=== PATIENT | male | born 1995 | race Two or more races ===

== ENCOUNTER 2016-07-24 12:17 | Outpatient (CLI) | payer MEDICAID | END 2016-07-24 12:18 | disposition critical access hospital (66) | DX: R06.00 Dyspnea, unspecified (principal); R05 Cough | CPT/HCPCS: A0425; A0429 ==

== ENCOUNTER 2016-07-24 12:33 | Emergency (ER) | payer MEDICAID ==
[2016-07-24] MEDS ORDERED: predniSONE 20 MG TABLET PO STA (14:39)
[2016-07-24] MEDS ORDERED: ALBUTEROL NEB 2.5 MG/3 ML INH STA (14:39)
--- NOTE | 2016-07-24 14:42 | ED Physician Documentation ---
PD HPI URI - Stated complaint Stated Complaint: COUGH - Chief complaint Chief Complaint: General - History obtained from History obtained from: Patient, EMS - History of Present Illness Timing - onset: How many weeks ago (2) Timing duration: Weeks (2) Timing details: Gradual onset Pain level max: 0 Pain level now: 0 Associated symptoms: Fever (subjective), Nasal congestion, Rhinorrhea, Sore throat, Dry cough, Dyspnea (wheezing) Contributing factors: Sick contact Improves by: Rest Worsened by: Activity, Breathing Similar symptoms before: Diagnosis (bronchitis) Recently seen: Emergency Dept (yesterday at [facility] and started on azithromycin and tessalon) Review of Systems Constitutional: reports: Fever (subjective) Nose: reports: Rhinorrhea / runny nose, Congestion Skin: denies: Rash Musculoskeletal: denies: Neck pain, Back pain Neurologic: denies: Headache PD PAST MEDICAL HISTORY - Past Medical History Past Medical History: Yes Cardiovascular: None Respiratory: Asthma Neuro: Headache/migraine Endocrine/Autoimmune: None GI: None : None HEENT: None Psych: Depression Musculoskeletal: Chronic back pain Derm: None Other Past Medical History: sports induced asthma - Past Surgical History Past Surgical History: No - Present Medications Home Medications: Ambulatory Orders Medication Instructions Recorded Confirmed Albuterol Sulf [Ventolin Hfa 2 puffs INH Q4HR PRN #1 inhaler 07/24/16 Inhaler] Azithromycin [Zithromax] 1 tab DAILY 07/24/16 07/24/16 Benzonatate [Tessalon Perle] 100 mg PRN 07/24/16 Prednisone 40 mg PO DAILY #10 tablet 07/24/16 - Allergies Allergies/Adverse Reactions: Allergies Allergy/AdvReac Type Severity Reaction Status Date / Time naproxen Allergy Itching Verified 08/05/15 21:42 - Social History Does the pt smoke?: Yes Smoking Status: Former smoker Does the pt drink ETOH?: Yes Does the pt have substance abuse?: No - Immunizations Immunizations are current?: Yes - POLST Patient has POLST: No PD ED PE NORMAL - Vitals Vital signs reviewed: Yes - General General: Alert and oriented X 3, No acute distress, Well developed/nourished - HEENT HEENT: PERRL, Ears normal, Moist mucous membranes, Pharynx benign - Neck Neck: Supple, no meningeal sign - Cardiac Cardiac: RRR, Strong equal pulses - Respiratory Respiratory: No respiratory distress, Other (Decreased breath sounds bilaterally with mild wheezing.) - Abdomen Abdomen: Soft, Non tender, Non distended - Derm Derm: Warm and dry - Neuro Neuro: Alert and oriented X 3 - Psych Psych: Normal mood, Normal affect Results - Vitals Vitals: Vital Signs - 24 hr 07/24/16 07/24/16 07/24/16 12:39 15:15 15:53 Temperature 37.4 C Heart Rate 74 80 87 Respiratory 18 18 18 Rate Blood Pressure 116/54 L 158/102 H O2 Saturation 97 97 Oxygen O2 Source Room air PD MEDICAL DECISION MAKING - ED course Complexity details: re-evaluated patient, considered differential, d/w patient ED course: Patient is a 21-year-old male who presents to the emergency department what appears to be a viral upper respiratory infection with wheezing. He was given steroids as well as a breathing treatment here with albuterol. Feels much better. He is already on Tessalon and azithromycin for home. We will prescribe him steroids and an inhaler as well. Patient counseled regarding signs and symptoms for which I believe and urgent re-evaluation would be necessary. Patient with good understanding of and agreement to plan and is comfortable going home at this time This document was made in part using voice recognition software. While efforts are made to proofread this document, sound alike and grammatical errors may occur. Patient is very well-appearing, nontoxic. Departure - Departure Disposition: 01 Home, Self Care Clinical Impression: Bronchitis, Wheezing Condition: Good Instructions: ED Bronchitis Asthmatic Follow-Up: Sudheer Boyer MD [Primary Care Provider] - Within 1 week Prescriptions: Albuterol Sulf [Ventolin Hfa Inhaler] 2 puffs INH Q4HR PRN #1 inhaler PRN Reason: Wheezing Prednisone 40 mg PO DAILY #10 tablet Comments: Continue the medications you were given yesterday. Return if you worsen. Your blood pressure was elevated today on check in to the emergency department. This does not mean that you have hypertension, it is a common phenomenon to check into the emergency department and have elevated blood pressure. I recommend that you see your primary care physician within the week to have it rechecked when you're feeling better. Discharge Date/Time: 07/24/16 16:20
[2016-07-24] MEDS ORDERED: predniSONE 20 MG TABLET ONE (15:00)
[2016-07-24] MEDS ORDERED: ALBUTEROL NEB 2.5 MG/3 ML INH ONE (15:03)
[2016-07-24 15:54] VITALS: BP 158/102
[2016-07-24] MEDS ORDERED: ACETAMINOPHEN 325 MG TABLET PO STA (16:08)
[2016-07-24] MEDS ORDERED: ACETAMINOPHEN 325 MG TABLET PO ONE (16:09)
== END 2016-07-24 16:20 | disposition home or self-care (01) ==
LOC: EDUNIT# → ED 12:33
DX: J40 Bronchitis, not specified as acute or chronic (principal); R03.0 Elevated blood-pressure reading, without diagnosis of hypertension; Z87.891 Personal history of nicotine dependence
CPT/HCPCS: 94640; 99283; A9270; J7512; J7613

== ENCOUNTER 2016-09-13 23:10 | Emergency (ER) | payer MEDICAID ==
--- NOTE | 2016-09-13 23:46 | ED Physician Documentation ---
PD HPI LOWER EXT INJURY - Stated complaint Stated Complaint: RT FOOT PAIN - Chief complaint Chief Complaint: Ext Problem - History obtained from History obtained from: Patient - History of Present Illness PD HPI LOW EXT INJURY LOCATION: Right, Foot Type of injury: Twist Where injury occurred: Home Timing - onset: How many days ago (4 days ago the apparent injury but pain just couple of days) Timing - duration: Days (pain just since yesterday) Timing - details: Gradual onset, Still present Improved by: Immobilization Worsened by: Moving, Palpating Associated symptoms: No: Weakness, Numbness, Swelling, Discolored Similar symptoms before: Has not had sx before Recently seen: Not recently seen Review of Systems Constitutional: denies: Fever, Chills Skin: denies: Rash, Lesions Neurologic: denies: Focal weakness, Numbness PD PAST MEDICAL HISTORY - Past Medical History Cardiovascular: None Respiratory: Asthma Neuro: Headache/migraine Endocrine/Autoimmune: None GI: None : None HEENT: None Psych: Depression Musculoskeletal: Chronic back pain, Other (denies history of gout) Derm: None - Past Surgical History Past Surgical History: No - Present Medications Home Medications: Ambulatory Orders Medication Instructions Recorded Confirmed Albuterol Sulf [Ventolin Hfa 2 puffs INH Q4HR PRN #1 inhaler 07/24/16 09/13/16 Inhaler] Ibuprofen 200 - 400 mg PO PRN PRN 09/13/16 09/13/16 Hydrocodone/Acetaminophen [Union 1 each PO Q6H PRN #20 tablet 09/14/16 5-325 Tablet] Ibuprofen [Motrin] 600 mg PO TID #20 tab 09/14/16 - Allergies Allergies/Adverse Reactions: Allergies Allergy/AdvReac Type Severity Reaction Status Date / Time naproxen Allergy Itching Verified 08/05/15 21:42 - Social History Does the pt smoke?: Yes Smoking Status: Former smoker Does the pt drink ETOH?: Yes Does the pt have substance abuse?: Yes Substance Use and Type: Marijuana - Immunizations Immunizations are current?: Yes - POLST Patient has POLST: No PD ED PE NORMAL - Vitals Vital signs reviewed: Yes - General General: Alert and oriented X 3, Well developed/nourished - Derm Derm: Normal color, Warm and dry, No rash - Extremities Extremities: Other (the dorsolateral aspect proximal foot with tenderness, mild swelling, but no redness nor sores. The malleoli are not tender. Toes are not tender. ) - Neuro Neuro: Alert and oriented X 3, No motor deficit, No sensory deficit Results - Vitals Vitals: Vital Signs - 24 hr 09/13/16 09/14/16 23:14 01:33 Temperature 36.1 C L Heart Rate 74 81 Respiratory 16 16 Rate Blood Pressure 158/104 H 149/89 H O2 Saturation 97 100 Oxygen O2 Source Room air - Rads (name of study) right foot Radiology: Prelim report reviewed, EMP read contemporaneously (normal) PD MEDICAL DECISION MAKING - ED course Complexity details: reviewed results, considered differential (sprain with delayed inflammation/tendonitis in lateral muscle. Could also consider gout response to injury but not red/hot and no history of gout. Would be similar treatment to tendonitis anyway. ), d/w patient Departure - Departure Disposition: 01 Home, Self Care Clinical Impression: Right foot sprain Qualifiers: Encounter type: initial encounter Qualified Code(s): S93.601A - Unspecified sprain of right foot, initial encounter Condition: Stable Instructions: ED Sprain Foot Follow-Up: Sudheer Boyer MD [Primary Care Provider] - Prescriptions: Ibuprofen [Motrin] 600 mg PO TID #20 tab Hydrocodone/Acetaminophen [Union 5-325 Tablet] 1 each PO Q6H PRN #20 tablet PRN Reason: Pain Comments: No fractures on the xray. Presume this is a sprain type injury and would improve with the splint and some NSAIDs and time. Sometimes mild injury can trigger some inflammation response, such as tendonitis or gout. These would be treated in the same way at this point. So Ibuprofen three times daily. Add Tylenol 500 mg 4 times daily or hydrocodone every 6 hours as needed for pain. Ankle brace when walking to support ankle/foot. Recheck with PMD if not improved over the next few days. Discharge Date/Time: 09/14/16 01:34
[2016-09-14] MEDS ORDERED: HYDROcod/ACETAM 5/325 MG TABLET PO STA (00:24)
[2016-09-14] MEDS ORDERED: DEXAMETHASONE 10 MG/ML VIAL PO STA (00:25)
[2016-09-14] MEDS ORDERED: DEXAMETHASONE 10 MG/ML VIAL ONE (00:31)
[2016-09-14] MEDS ORDERED: HYDROcod/ACETAM 5/325 MG TABLET ONE (00:31)
--- NOTE | 2016-09-14 01:14 | XRAY Preliminary Report ---
Exam: XR Foot 3 View RT IMPRESSION: 1. Ankle and right foot swelling. 2. No fracture. [facility] SITE ID: [id number]
--- NOTE | 2016-09-14 01:16 | XRAY Report ---
EXAM: RIGHT FOOT RADIOGRAPHY EXAM DATE: 09/14/2016 12:25 AM. CLINICAL HISTORY: Foot injury and pain. COMPARISON: None. TECHNIQUE: 3 views. FINDINGS: Bones: Normal. No fractures or bone lesions. Joints: No dislocation. Mild hallux valgus angulation. Soft Tissues: Right ankle swelling noted. IMPRESSION: 1. Ankle and right foot swelling. 2. No fracture. [facility] Referring Provider Line: [phone] SITE ID: [id number]
[2016-09-14 01:34] VITALS: BP 149/89
== END 2016-09-14 01:34 | disposition home or self-care (01) ==
LOC: ED 23:10
DX: S93.601A Unspecified sprain of right foot, initial encounter (principal); X50.9XXA Other and unspecified overexertion or strenuous movements or postures, initial encounter; Y92.009 Unspecified place in unspecified non-institutional (private) residence as the place of occurrence of the external cause; Z87.891 Personal history of nicotine dependence
CPT/HCPCS: 73630; 99283; A9270

== ENCOUNTER 2017-02-14 02:00 | Emergency (ER) | payer MEDICAID ==
--- NOTE | 2017-02-14 02:08 | ED Physician Documentation ---
PD HPI SKIN - Stated complaint Stated Complaint: RASH - History obtained from History obtained from: Patient - History of Present Illness Timing - onset: Chronic Timing - details: Gradual onset, Still present Location: Abdomen Quality / character: Painful, Burning, Draining Improved by: Antifungal Similar symptoms before: Work up / diagnostics, Treatment Recently seen: Not recently seen - Additional information Additional information: Patient is a 21 year old obese male who is presenting to the emergency department for a rash on his abdomen. patient has had it before in the past and was treated with an antifungal. patient states that he thinks it came back. patient states that he doesn't have a doctor so he came to the emergency department. Review of Systems Constitutional: denies: Fever, Chills Eyes: reports: Reviewed and negative Ears: reports: Reviewed and negative Nose: reports: Reviewed and negative Throat: reports: Reviewed and negative Cardiac: reports: Reviewed and negative Respiratory: reports: Reviewed and negative GI: reports: Abdominal Pain : reports: Reviewed and negative Skin: reports: Rash, Lesions Musculoskeletal: reports: Reviewed and negative Neurologic: reports: Reviewed and negative Immunocompromised: denies: Immunocompromised PD PAST MEDICAL HISTORY - Past Medical History Cardiovascular: None Respiratory: Asthma Neuro: Headache/migraine Endocrine/Autoimmune: None GI: None : None HEENT: None Psych: Depression Musculoskeletal: Chronic back pain, Other Derm: None - Past Surgical History Past Surgical History: No - Present Medications Home Medications: Ambulatory Orders Medication Instructions Recorded Confirmed Nystatin [Nystop] 1 applic TOP TID 14 Days #3 bottle 12/31/16 Nystatin Cream [Mycostatin Cream] 1 applic TOP TID #1 tube 02/14/17 - Allergies Allergies/Adverse Reactions: Allergies Allergy/AdvReac Type Severity Reaction Status Date / Time naproxen Allergy Itching Verified 08/05/15 21:42 - Social History Does the pt smoke?: Yes Smoking Status: Current every day smoker Does the pt drink ETOH?: Yes Does the pt have substance abuse?: Yes - Immunizations Immunizations are current?: Yes - POLST Patient has POLST: No PD ED PE NORMAL - Vitals Vital signs reviewed: Yes - General General: Alert and oriented X 3, No acute distress - HEENT HEENT: Atraumatic, PERRL, Moist mucous membranes - Cardiac Cardiac: RRR, No murmur - Respiratory Respiratory: No respiratory distress - Extremities Extremities: No deformity, Normal ROM s pain - Neuro Neuro: Alert and oriented X 3, No motor deficit, Normal speech Eye Opening: Spontaneous Motor: Obeys Commands Verbal: Oriented GCS Score: 15 - Psych Psych: Normal mood PD ED PE EXPANDED - Abdomen Abdomen: Other (obese abdomen with rash described below) - Derm Derm: Rash (erythematous rash with small white discharge in abdominal fold) Results - Vitals Vitals: Vital Signs - 24 hr 02/14/17 02:08 Temperature 36.4 C L Heart Rate 64 Respiratory 18 Rate Blood Pressure 165/90 H O2 Saturation 100 Oxygen O2 Source Room air PD MEDICAL DECISION MAKING - ED course Complexity details: reviewed old records, reviewed results, re-evaluated patient , considered differential, d/w patient ED course: Patient was seen and examined at bedside. previous notes were reviewed. prescriptions were written. patient was stable for discharge with outpatient follow up. Departure - Departure Disposition: 01 Home, Self Care Clinical Impression: Fungal infection of skin of abdomen Condition: Good Instructions: ED Infec Skin Fungal Tinea Follow-Up: [facility] [Provider Group] [facility] [Provider Group] Prescriptions: Nystatin Cream [Mycostatin Cream] 1 applic TOP TID #1 tube Comments: Your symptoms are being caused by a skin infection. You have to work harder at keeping the area clean and dry or else this is going to keep happening. You should wash and dry the area at least three times a day and apply the medication. You should call the two clinics listed above to find a primary care physician. Discharge Date/Time: 02/14/17 02:15
[2017-02-14 02:09] VITALS: BP 165/90
== END 2017-02-14 02:15 | disposition home or self-care (01) ==
LOC: ED 02:00
DX: B36.9 Superficial mycosis, unspecified (principal); J45.909 Unspecified asthma, uncomplicated; F17.200 Nicotine dependence, unspecified, uncomplicated
CPT/HCPCS: 99283

== ENCOUNTER 2017-03-17 22:45 | Emergency (ER) | payer MEDICAID ==
--- NOTE | 2017-03-18 00:05 | ED Physician Documentation ---
History of Present Illness - Stated complaint Stated Complaint: BILATERAL FEET SWELLING/PX - Chief complaint Chief Complaint: Ext Problem - History obtained from History obtained from: Patient - History of Present Illness Timing: Today Pain level now: 5 Radiates to: no radiation Improved by: no ameliorating factors Worsened by: no exacerbating factors - Additonal information Additional information: since this morning, patient has noticed BLE edema with RLE pain distal to knee ( from upper tibial area to toes). Denies injury, denies h/o similar symptoms. Denies chest pain, denies shortness of breath. Review of Systems Constitutional: denies: Fever Cardiac: denies: Chest pain / pressure Respiratory: denies: Dyspnea Musculoskeletal: reports: Extremity pain, Extremity swelling Neurologic: denies: Generalized weakness, Focal weakness, Numbness PD PAST MEDICAL HISTORY - Past Medical History Past Medical History: Yes Cardiovascular: None Respiratory: Asthma Neuro: Headache/migraine Endocrine/Autoimmune: None GI: None : None HEENT: None Psych: Depression, Anxiety Musculoskeletal: Chronic back pain, Other Derm: None Other Past Medical History: R ankle FX w/ no surgery - Past Surgical History Past Surgical History: No - Present Medications Home Medications: Ambulatory Orders Medication Instructions Recorded Confirmed Alprazolam [Xanax] 1 tab PO Q8HR PRN 03/17/17 03/17/17 Furosemide [Lasix] 40 mg PO DAILY #5 tablet 03/18/17 - Allergies Allergies/Adverse Reactions: Allergies Allergy/AdvReac Type Severity Reaction Status Date / Time naproxen Allergy Itching Verified 03/17/17 22:55 - Social History Does the pt smoke?: Yes Smoking Status: Current every day smoker Does the pt drink ETOH?: Yes Does the pt have substance abuse?: Yes - Immunizations Immunizations are current?: Yes - POLST Patient has POLST: No PD ED PE NORMAL - Vitals Vital signs reviewed: Yes - General General: Alert and oriented X 3, No acute distress, Well developed/nourished - Cardiac Cardiac: RRR, No murmur, No gallop, No rub - Respiratory Respiratory: No respiratory distress, Clear bilaterally - Derm Derm: Normal color, Warm and dry PD ED PE EXPANDED - Extremities Extremities: Pedal edema bilateral, Pedal Pulses Present, Motor intact, Sensory intact, Vascular intact Results - Vitals Vitals: Vital Signs - 24 hr 01/11/2403/18/17 03/18/17 22:50 01:40 03:00 Temperature 37.4 C 36.3 C L Heart Rate 93 80 78 Respiratory 22 15 16 Rate Blood Pressure 161/107 H 123/84 H 146/92 H O2 Saturation 97 97 97 Oxygen O2 Source Room air - Labs Labs: Laboratory Tests 03/18/17 00:28 Sodium 138 Potassium 4.2 Chloride 98 L Carbon Dioxide 23 Anion Gap 17.0 H BUN 13 Creatinine 0.7 Estimated GFR (MDRD) 140 Glucose 110 H Calcium 9.9 - Rads (name of study) RLE US Radiology: Prelim report reviewed, See rad report PD MEDICAL DECISION MAKING - ED course Complexity details: reviewed results, re-evaluated patient, considered differential, d/w patient ED course: BLE pedal edema, 2+ pitting with mild tenderness pre-tibial surfaces R>L. No evidence of infection (such as hot joint, decreased ROM of a joint, red skin to suggest cellulitis). As his c/o of pain was right-sided, ultrasound performed to assess possible DVT, and is found to be negative for this diagnosis. Kidney function tests are reassuring. Cardiac cause is unlikely in this 21 year old patient. Will rx 5 days of lasix and instructed to f/u with PMD Departure - Departure Disposition: Home, Self Care Clinical Impression: Peripheral edema Condition: Good Instructions: ED Edema Legs Bilateral Follow-Up: [facility] [Provider Group] [facility] [Provider Group] Prescriptions: Furosemide [Lasix] 40 mg PO DAILY #5 tablet Discharge Date/Time: 03/18/17 03:03
[2017-03-18 00:47] LABS: CALCIUM 9.9 mg/dL (8.5-10.3); CREATININE 0.7 mg/dL (0.6-1.2)
--- NOTE | 2017-03-18 01:45 | Ultrasound Report ---
EXAM: RIGHT LOWER EXTREMITY VENOUS ULTRASOUND EXAM DATE: 03/18/2017 01:37 AM. CLINICAL HISTORY: Swelling, pain. COMPARISON: None. TECHNIQUE: Real-time sonographic vascular imaging was performed by the [employer] through the lower extremity utilizing both color-flow and Doppler spectral analysis. Multiple pharmacy services representative static fawn ges were saved for review. FINDINGS: Common Femoral Vein (CFV): Normal. CFV-GSV Junction: Normal. Profunda Femoral Vein (PFV): Normal. Femoral Vein (FV) Prox: Normal. Femoral Vein (FV) Mid: Normal. Femoral Vein (FV) Dist: Normal. Popliteal Vein: Normal. Posterior Tibial Veins: Suboptimally seen. No thrombus seen. Peroneal Veins: Not seen. Other: Fluid collection at the lateral aspect of the right knee measuring 3.7 x 0.5 x 2.6 cm. IMPRESSION: 1. No deep venous thrombosis seen. 2. Fluid collection at the lateral right knee measuring 3.7 x 0.5 x 2.6 cm. [facility] Referring Provider Line: [phone] SITE ID: [id number]
[2017-03-18] MEDS ORDERED: traMADol 50 MG TABLET PO STA (02:53)
[2017-03-18 03:03] VITALS: BP 146/92
== END 2017-03-18 03:03 | disposition home or self-care (01) ==
LOC: ED 22:45
DX: R60.0 Localized edema (principal); F17.200 Nicotine dependence, unspecified, uncomplicated
CPT/HCPCS: 80048; 93971; 99283; A9270

== ENCOUNTER 2018-03-24 08:23 | Emergency (ER) | payer MEDICAID ==
[2018-03-24 08:36] VITALS: BP 139/92
[2018-03-24] MEDS ORDERED: BACITRACIN OINT TOP STA (09:44)
--- NOTE | 2018-03-24 09:47 | ED Physician Documentation ---
PD HPI SKIN - Stated complaint Stated Complaint: OPEN WOUND CHECK - Chief complaint Chief Complaint: Wound - History obtained from History obtained from: Patient - Additional information Additional information: 22-year-old male presents the emergency department for evaluation of an abrasion on his right lower extremity. No fevers or chills or redness. Symptoms are described as mild. No active bleeding Review of Systems Constitutional: denies: Fever, Chills GI: denies: Abdominal Pain Skin: reports: Lesions Musculoskeletal: denies: Back pain Immunocompromised: denies: Immunocompromised, Chemotherapy PD PAST MEDICAL HISTORY - Past Medical History Cardiovascular: None Respiratory: Asthma Endocrine/Autoimmune: None GI: None : None HEENT: None Psych: Depression, Anxiety Musculoskeletal: Chronic back pain, Other Derm: None - Past Surgical History Past Surgical History: No - Present Medications Home Medications: Ambulatory Orders Medication Instructions Recorded Confirmed No Known Home Medications 03/24/18 03/24/18 - Allergies Allergies/Adverse Reactions: Allergies Allergy/AdvReac Type Severity Reaction Status Date / Time naproxen Allergy Itching Verified 03/24/18 08:36 - Social History Does the pt smoke?: Yes Smoking Status: Current every day smoker Does the pt drink ETOH?: Yes Does the pt have substance abuse?: Yes Substance Use and Type: Marijuana - Immunizations Immunizations are current?: Yes - POLST Patient has POLST: No PD ED PE NORMAL - General General: Alert and oriented X 3, No acute distress - HEENT HEENT: Atraumatic, PERRL, EOMI, Ears normal - Extremities Extremities: No deformity, Normal ROM s pain - Neuro Neuro: Alert and oriented X 3, Normal speech - Psych Psych: Normal affect PD ED PE EXPANDED - Extremities EARNESTINE LE visual: 1 - abrasion (Very small superficial abrasion, no surrounding cellulitis or underlying abscess on examination) Results - Vitals Vitals: Vital Signs - 24 hr 03/24/18 08:31 Temperature 36.0 C L Heart Rate 81 Respiratory 16 Rate Blood Pressure 139/92 H O2 Saturation 97 Oxygen O2 Source Room air PD MEDICAL DECISION MAKING - ED course ED course: The patient has a simple abrasion, no evidence of abscess or acute cellulitis. I discussed wound management with the patient. I advised returning for any worsening or any concerns. Departure - Departure Disposition: 01 Home, Self Care Clinical Impression: Leg abrasion Qualifiers: Encounter type: initial encounter Laterality: unspecified laterality Qualified Code(s): S80.819A - Abrasion, unspecified lower leg, initial encounter Condition: Good Instructions: Wound Care Comments: Please follow-up with primary care Please return for any worsening or any concerns.
== END 2018-03-24 09:52 | disposition home or self-care (01) ==
LOC: ED 08:23
DX: S80.819A Abrasion, unspecified lower leg, initial encounter (principal); X58.XXXA Exposure to other specified factors, initial encounter; F17.200 Nicotine dependence, unspecified, uncomplicated
CPT/HCPCS: 99282; 99283; A9270

== ENCOUNTER 2018-03-24 20:42 | Emergency (ER) | payer MEDICAID ==
[2018-03-24 20:47] VITALS: BP 138/82
== END 2018-03-24 21:23 | disposition left against medical advice (07) ==
LOC: ED 20:42
DX: Z53.21 Procedure and treatment not carried out due to patient leaving prior to being seen by health care provider (principal)

== ENCOUNTER 2018-03-25 15:12 | Emergency (ER) | payer MEDICAID ==
[2018-03-25 15:43] VITALS: BP 147/89
--- NOTE | 2018-03-25 16:03 | ED Physician Documentation ---
History of Present Illness - Stated complaint Stated Complaint: CAN'T SLEEP - Chief complaint Chief Complaint: General - Additonal information Additional information: 22-year-old male presents the emergency department requesting medications for sleep. The patient used to be on trazodone and Seroquel several years ago for sleep. Presently the patient is Not on any sleep medications. The patient denies suicidal homicidal ideations. The patient has not attempted any [id number]-[id number] medications. No other associated symptoms. Review of Systems Constitutional: denies: Fever, Chills Eyes: denies: Discharge Ears: denies: Ear pain Nose: denies: Congestion Cardiac: denies: Chest pain / pressure Psychiatric: reports: Insomnia. denies: Suicidal, Homicidal, Hallucinations, Delusions, Anxiety PD PAST MEDICAL HISTORY - Past Medical History Past Medical History: Yes Cardiovascular: None Respiratory: Asthma Endocrine/Autoimmune: None GI: None : None HEENT: None Psych: Depression, Anxiety Musculoskeletal: Chronic back pain, Other Derm: None - Past Surgical History Past Surgical History: No - Present Medications Home Medications: Ambulatory Orders Medication Instructions Recorded Confirmed No Known Home Medications 03/24/18 03/24/18 - Allergies Allergies/Adverse Reactions: Allergies Allergy/AdvReac Type Severity Reaction Status Date / Time naproxen Allergy Itching Verified 03/25/18 15:18 - Social History Does the pt smoke?: Yes Smoking Status: Current every day smoker Does the pt drink ETOH?: Yes Does the pt have substance abuse?: Yes - Immunizations Immunizations are current?: Yes - POLST Patient has POLST: No PD ED PE NORMAL - General General: Alert and oriented X 3, No acute distress - HEENT HEENT: Atraumatic, PERRL, EOMI, Ears normal - Derm Derm: Normal color - Neuro Neuro: Alert and oriented X 3, Normal speech - Psych Psych: Normal mood Results - Vitals Vitals: Vital Signs - 24 hr 03/25/18 15:15 Temperature 36 C L Heart Rate 78 Respiratory 20 Rate Blood Pressure 147/89 H O2 Saturation 97 Oxygen O2 Source Room air PD MEDICAL DECISION MAKING - ED course ED course: I explained to the patient that I would not be starting any psychoactive sleep aids at this time. It would be best if the patient attempts [id number] medications first. I gave recommendations for melatonin and Benadryl. I advised follow-up with primary care for ongoing prescriptions of any other sleep aids. The patient understands and agrees. I discussed warning signs and recommended returning for any worsening or any concerns. Departure - Departure Disposition: 01 Home, Self Care Clinical Impression: Sleep trouble Condition: Good Instructions: Insomnia Comments: Please attempt to use yjey-pek-ktwhuyn medications for your sleep troubles. You may want to try melatonin 5-10 mg nightly or Unisom 50 mg nightlyAs needed for sleep Please return to the ER for worsening symptoms or any concerns
== END 2018-03-25 16:11 | disposition home or self-care (01) ==
LOC: ED 15:12
DX: G47.00 Insomnia, unspecified (principal); F17.200 Nicotine dependence, unspecified, uncomplicated
CPT/HCPCS: 99281; 99282

== ENCOUNTER 2018-04-04 23:51 | Emergency (ER) | payer MEDICAID ==
--- NOTE | 2018-04-05 01:28 | XRAY Report ---
Reason: chest pain Procedure Date: 04/05/2018 Accession Number: [id number] / [id number] Procedure: XR - Chest 1 View X-Ray CPT Code: 60356 FULL RESULT: EXAM: CHEST RADIOGRAPHY EXAM DATE: 04/05/2018 01:17 AM. CLINICAL HISTORY: Chest pain. COMPARISON: RIBS W/PA CHEST RT 05/07/2014 9:45 PM. TECHNIQUE: 1 view. FINDINGS: Lungs/Pleura: No dense consolidation. No large effusion or pneumothorax. No pulmonary edema. Mediastinum: Heart and mediastinal contours are unremarkable. Other: None. IMPRESSION: No acute radiographic pulmonary abnormalities. RADIA
--- NOTE | 2018-04-05 01:47 | ED Physician Documentation ---
PD HPI HEENT - Stated complaint Stated Complaint: COUGH,EAR PRESSURE - Chief complaint Chief Complaint: Heent - History obtained from History obtained from: Patient - History of Present Illness Timing - onset: How many days ago (10) Timing - duration: Days (10) Timing - details: Still present Pain level max: 4 Pain level now: 4 Severity Comments: mild Location: Sinuses Improves: Nothing. No: Medication, Heat, Ice Worsens: No: Swalllowing, Noise Associated symptoms: Fever, Congestion, Rhinorrhea Review of Systems Constitutional: reports: Reviewed and negative Eyes: reports: Reviewed and negative Ears: reports: Reviewed and negative Nose: reports: Reviewed and negative Throat: reports: Reviewed and negative Cardiac: reports: Reviewed and negative Respiratory: reports: Reviewed and negative GI: reports: Reviewed and negative : reports: Reviewed and negative Skin: reports: Reviewed and negative Musculoskeletal: reports: Reviewed and negative Neurologic: reports: Reviewed and negative Psychiatric: reports: Reviewed and negative Endocrine: reports: Reviewed and negative Immunocompromised: reports: Reviewed and negative PD PAST MEDICAL HISTORY - Past Medical History Cardiovascular: None Respiratory: Asthma Endocrine/Autoimmune: None GI: None : None HEENT: None Psych: Depression, Anxiety Musculoskeletal: Chronic back pain, Other Derm: None - Past Surgical History Past Surgical History: No Other past surgical history: Reviewed and not pertinent - Present Medications Home Medications: Ambulatory Orders Medication Instructions Recorded Confirmed Amox/Clav 875/125 [Augmentin] 1 each PO Q12H #20 tablet 04/05/18 - Allergies Allergies/Adverse Reactions: Allergies Allergy/AdvReac Type Severity Reaction Status Date / Time No Known Drug Allergies Allergy Verified 04/05/18 00:03 - Living Situation Living Situation: reports: Alone Living Arrangement: reports: At home - Social History Does the pt smoke?: Yes Smoking Status: Current every day smoker Does the pt drink ETOH?: Yes Does the pt have substance abuse?: Yes - Family History Family history: reports: Other (Reviewed and not pertinent) - Immunizations Immunizations are current?: Yes - POLST Patient has POLST: No PD ED PE NORMAL - Vitals Vital signs reviewed: Yes - General General: Alert and oriented X 3, No acute distress - HEENT HEENT: PERRL, Other (Sinus tenderness to percussion) - Neck Neck: Supple, no meningeal sign - Cardiac Cardiac: RRR, No murmur - Respiratory Respiratory: Clear bilaterally - Abdomen Abdomen: Normal bowel sounds, Soft, Non tender, Non distended - Derm Derm: Warm and dry - Extremities Extremities: No deformity - Neuro Neuro: Alert and oriented X 3 - Psych Psych: Normal mood, Normal affect Results - Vitals Vitals: Vital Signs - 24 hr 04/04/18 23:55 Temperature 36.7 C Heart Rate 87 Respiratory 18 Rate Blood Pressure 138/86 H O2 Saturation 97 Oxygen O2 Source Room air - Rads (name of study) Chest x-ray Radiology: Final report received (WNL) PD MEDICAL DECISION MAKING - ED course Complexity details: reviewed results, re-evaluated patient, d/w patient ED course: 22-year-old male with sinus pain greater than 10 days. Consistent with bacterial sinusitis. Discharged on Augmentin. Departure - Departure Disposition: Home, Self Care Clinical Impression: Acute bacterial sinusitis Condition: Good Instructions: ED Sinusitis Abx Tx Ch Follow-Up: Your, pcp [Other] Prescriptions: Amox/Clav 875/125 [Augmentin] 1 each PO Q12H #20 tablet Comments: Take antibiotics as prescribed. You may also take btth-iqy-ygiixen Afrin and Sudafed as needed for congestion. Follow-up with PCP within 24 hours. Return w ith worsening symptoms.
[2018-04-05 01:52] VITALS: BP 132/68
== END 2018-04-05 01:52 | disposition home or self-care (01) ==
LOC: ED 23:51
DX: J01.90 Acute sinusitis, unspecified (principal); B96.89 Other specified bacterial agents as the cause of diseases classified elsewhere; F17.200 Nicotine dependence, unspecified, uncomplicated
CPT/HCPCS: 71045; 99283

== ENCOUNTER 2018-06-17 10:51 | Emergency (ER) | payer MEDICAID ==
[2018-06-17 11:01] VITALS: BP 146/91
--- NOTE | 2018-06-17 11:30 | ED Physician Documentation ---
PD HPI SKIN - Stated complaint Stated Complaint: RASH ON STOMACH - Chief complaint Chief Complaint: Wound - History obtained from History obtained from: Patient - History of Present Illness Timing - onset: How many days ago (several days) Timing - duration: Days (several) Timing - details: Gradual onset Pain level max: 0 Pain level now: 0 Location: Bodywide Quality / character: Itchy, Painful, Discolored (erythematous) Improved by: Other (nothing) Worsened by (comment): COMMENT (nothing) Associated symptoms: No: Fever, Myalgias, Joint pain, Headache, Facial swelling, Dyspnea, Abd pain, N/V/D, Urinary sx Recently seen: Not recently seen - Additional information Additional information: 23-year-old male with a rash under his pannus. Review of Systems Constitutional: denies: Fever Respiratory: denies: Cough GI: denies: Vomiting, Diarrhea PD PAST MEDICAL HISTORY - Past Medical History Past Medical History: Yes Cardiovascular: None Respiratory: Asthma Endocrine/Autoimmune: None GI: None : None HEENT: None Psych: Depression, Anxiety Musculoskeletal: Chronic back pain, Other Derm: None - Past Surgical History Past Surgical History: No - Present Medications Home Medications: Ambulatory Orders Medication Instructions Recorded Confirmed [facility] 1 applic TP BID PRN #1 bottle 06/17/18 - Allergies Allergies/Adverse Reactions: Allergies Allergy/AdvReac Type Severity Reaction Status Date / Time No Known Drug Allergies Allergy Verified 06/17/18 11:01 - Social History Does the pt smoke?: Yes Smoking Status: Current every day smoker Does the pt drink ETOH?: No Does the pt have substance abuse?: Yes Substance Use and Type: Marijuana - Immunizations Immunizations are current?: Yes - POLST Patient has POLST: No PD ED PE NORMAL - Vitals Vital signs reviewed: Yes - General General: Alert and oriented X 3, No acute distress - Derm Derm: Warm and dry, Other (Moist, yeast odor underneath his abdominal pannus. Erythematous with satellite lesions.) - Neuro Neuro: Alert and oriented X 3 Results - Vitals Vitals: Vital Signs - 24 hr 06/17/18 10:59 Temperature 36.0 C L Heart Rate 78 Respiratory 14 Rate Blood Pressure 146/91 H O2 Saturation 95 Oxygen O2 Source Room air PD MEDICAL DECISION MAKING - ED course Complexity details: considered differential, d/w patient ED course: 23-year-old male with what appears to be a candidal skin infection. Will place on nystatin powder and follow-up with his doctor. No evidence of secondary infection. Patient counseled regarding signs and symptoms for which I believe and urgent re-evaluation would be necessary. Patient with good understanding of and agreement to plan and is comfortable going home at this time This document was made in part using voice recognition software. While efforts are made to proofread this document, sound alike and grammatical errors may occur. Departure - Departure Disposition: 01 Home, Self Care Clinical Impression: Candidal skin infection Condition: Good Instructions: ED Candidiasis Cutaneous Follow-Up: Alejandra Alberts MD [Primary Care Provider] - Within 1 week Prescriptions: Nystatin [[facility]] 1 applic TP BID PRN #1 bottle PRN Reason: rash Comments: Return if you worsen. Follow up with your doctor within 1 week for repeat evaluation. Discharge Date/Time: 06/17/18 11:34
== END 2018-06-17 11:34 | disposition home or self-care (01) ==
LOC: ED 10:51
DX: B37.2 Candidiasis of skin and nail (principal); F17.200 Nicotine dependence, unspecified, uncomplicated
CPT/HCPCS: 99283

== ENCOUNTER 2018-10-19 17:43 | Emergency (ER) | payer MEDICAID ==
[2018-10-19 17:50] VITALS: BP 109/88
--- NOTE | 2018-10-19 18:27 | ED Physician Documentation ---
History of Present Illness - Stated complaint Stated Complaint: ARMS/ABD RASH - Chief complaint Chief Complaint: General - History obtained from History obtained from: Patient - History of Present Illness Timing: Other (23-year-old gentleman with morbid obesity has a recurrent issue with candidal skin infection in the intertriginous folds and he has had this issue now for the last week or so. He says that in the past nystatin has been helpful.) Review of Systems Constitutional: denies: Fever, Chills Respiratory: reports: Reviewed and negative GI: denies: Abdominal Pain, Nausea, Vomiting PD PAST MEDICAL HISTORY - Past Medical History Cardiovascular: None Respiratory: Asthma Endocrine/Autoimmune: None GI: None : None HEENT: None Psych: Depression, Anxiety Musculoskeletal: Chronic back pain, Other Derm: None - Past Surgical History Past Surgical History: No - Present Medications Home Medications: Ambulatory Orders Medication Instructions Recorded Confirmed Nystatin [Nyamyc] 1 applic TP BID PRN #1 bottle 06/17/18 Nystatin [Nystop] 1 applic TOP BID #3 bottle 10/19/18 - Allergies Allergies/Adverse Reactions: Allergies Allergy/AdvReac Type Severity Reaction Status Date / Time naproxen Allergy Itching Verified 10/19/18 17:46 - Social History Does the pt smoke?: Yes Smoking Status: Current every day smoker Does the pt drink ETOH?: No Does the pt have substance abuse?: Yes - Immunizations Immunizations are current?: Yes - POLST Patient has POLST: No PD ED PE NORMAL - Vitals Vital signs reviewed: Yes - General General: Alert and oriented X 3, No acute distress - Derm Derm: Other (He has a candidal appearing skin infection under his abdominal pannus and mildly in the axilla.) - Neuro Neuro: Alert and oriented X 3, Normal speech Results - Vitals Vitals: Vital Signs - 24 hr 10/19/18 17:46 Temperature 36.5 C Heart Rate 84 Respiratory 16 Rate Blood Pressure 109/88 H O2 Saturation 97 Oxygen O2 Source Room air Departure - Departure Disposition: 01 Home, Self Care Clinical Impression: Candidal skin infection Condition: Good Record reviewed to determine appropriate education?: Yes Instructions: ED Candidiasis Cutaneous Prescriptions: Nystatin [Nystop] 1 applic TOP BID #3 bottle Comments: Call your doctor to arrange a follow-up appointment, make the next available wilbur ointment. In the interim, return anytime if worse or if new symptoms develop.
== END 2018-10-19 18:30 | disposition home or self-care (01) ==
LOC: ED 17:43
DX: B37.2 Candidiasis of skin and nail (principal); E66.01 Morbid (severe) obesity due to excess calories; Z68.43 Body mass index [BMI] 50.0-59.9, adult; F17.200 Nicotine dependence, unspecified, uncomplicated
CPT/HCPCS: 99282; 99283

== ENCOUNTER 2018-11-09 14:25 | Emergency (ER) | payer MEDICAID ==
[2018-11-09 14:32] VITALS: BP 177/73
--- NOTE | 2018-11-09 14:38 | ED Physician Documentation ---
History of Present Illness - Stated complaint Stated Complaint: LT SIDED NECK PX - Chief complaint Chief Complaint: General - History obtained from History obtained from: Patient - History of Present Illness Timing: Other (He woke up a few days ago with pain in the left side of the neck that is worse with rotation and not so bad with flexion or extension. There is no specific injury. No sore throat or fevers. He is never had this before. He has an appointment to see his doctor next week for same but is having a lot of problems with the pain despite taking Tylenol. He also needs a refill on [place] statin for chronic skin yeast infection under his abdominal pannus.) Review of Systems Constitutional: denies: Fever, Chills GI: denies: Abdominal Pain, Nausea, Vomiting : denies: Dysuria, Frequency PD PAST MEDICAL HISTORY - Past Medical History Cardiovascular: None Respiratory: Asthma Endocrine/Autoimmune: None GI: None : None HEENT: None Psych: Depression, Anxiety Musculoskeletal: Chronic back pain, Other Derm: None - Past Surgical History Past Surgical History: No - Present Medications Home Medications: Ambulatory Orders Medication Instructions Recorded Confirmed Nystatin [Nyamyc] 1 applic TP BID PRN #1 bottle 06/17/18 Nystatin [Nystop] 1 applic TOP BID #3 bottle 10/19/18 Cyclobenzaprine [Flexeril] 10 mg PO TID PRN #14 tablet 11/09/18 Nystatin [Nystop] 1 applic TOP BID #3 bottle 11/09/18 - Allergies Allergies/Adverse Reactions: Allergies Allergy/AdvReac Type Severity Reaction Status Date / Time naproxen Allergy Itching Verified 11/09/18 14:32 - Social History Does the pt smoke?: Yes Smoking Status: Current every day smoker Does the pt drink ETOH?: No Does the pt have substance abuse?: Yes - Immunizations Immunizations are current?: Yes - POLST Patient has POLST: No PD ED PE NORMAL - Vitals Vital signs reviewed: Yes - General General: Alert and oriented X 3, No acute distress - HEENT HEENT: Pharynx benign, Other (He has no midline neck tenderness. He is tender over the left sternocleidomastoid. He has pain with rotation.) - Cardiac Cardiac: RRR, No murmur - Respiratory Respiratory: No respiratory distress, Clear bilaterally - Abdomen Abdomen: Non tender - Neuro Neuro: Alert and oriented X 3, Normal speech Results - Vitals Vitals: Vital Signs - 24 hr 11/09/18 14:30 Temperature 36.7 C Heart Rate 81 Respiratory 22 Rate Blood Pressure 177/73 H O2 Saturation 97 Oxygen O2 Source Room air PD MEDICAL DECISION MAKING - ED course ED course: This young man has no evidence of other emergency medical condition. He is Given a prescription for Flexeril. Recommended to discuss physical therapy with his physician when he sees him or her next week. Departure - Departure Disposition: 01 Home, Self Care Clinical Impression: Sternocleidomastoid muscle tenderness, Candidal skin infection Condition: Good Record reviewed to determine appropriate education?: Yes Instructions: ED Spasm Neck No Injury Prescriptions: Cyclobenzaprine [Flexeril] 10 mg PO TID PRN #14 tablet PRN Reason: Spasms Nystatin [Nystop] 1 applic TOP BID #3 bottle Comments: Follow-up with your doctor next week as scheduled. Return for new or worsening symptoms. Your blood pressure was elevated today on check into the emergency department. This does not mean that you have hypertension, it is a common phenomenon to come to the emergency department and have elevated blood pressure. I recommend that you see your primary care physician within the week to have it rechecked when you are feeling better.
== END 2018-11-09 14:48 | disposition home or self-care (01) ==
LOC: ED 14:25
DX: M54.2 Cervicalgia (principal); M79.18 Myalgia, other site; B37.2 Candidiasis of skin and nail; R03.0 Elevated blood-pressure reading, without diagnosis of hypertension; F17.200 Nicotine dependence, unspecified, uncomplicated
CPT/HCPCS: 99282; 99283

== ENCOUNTER 2019-03-08 11:44 | Emergency (ER) | payer MEDICAID ==
[2019-03-08] MEDS ORDERED: SODIUM CHLORIDE 0.9% 1,000 ML IV ONE (12:15)
[2019-03-08] MEDS ORDERED: ONDANSETRON 4 MG/2 ML VIAL IVP STA (12:15)
[2019-03-08] MEDS ORDERED: LOPERAMIDE 2 MG CAPSULE PO STA (12:15)
--- NOTE | 2019-03-08 12:18 | ED Physician Documentation ---
History of Present Illness - Stated complaint Stated Complaint: VOMITING/DIARRHEA - Chief complaint Chief Complaint: General - History obtained from History obtained from: Patient (23-year-old gentleman got acutely ill last night with vomiting and diarrhea. No associated abdominal pain fevers or chills although he is noted to have a fever here. He had a relative who was sick with a GI bug over the weekend who is staying with them. No blood from either end. No recent travel.) Review of Systems Constitutional: denies: Fever, Chills Respiratory: denies: Dyspnea, Cough GI: reports: Nausea, Vomiting, Diarrhea. denies: Abdominal Pain : denies: Dysuria, Frequency PD PAST MEDICAL HISTORY - Past Medical History Cardiovascular: None Respiratory: Asthma Neuro: None Endocrine/Autoimmune: None GI: GERD : None HEENT: None Psych: Depression, Anxiety Musculoskeletal: Chronic back pain, Other Derm: None - Past Surgical History Past Surgical History: No - Present Medications Home Medications: Ambulatory Orders Medication Instructions Recorded Confirmed Nystatin [Nyamyc] 1 applic TP BID PRN #1 bottle 06/17/18 Nystatin [Nystop] 1 applic TOP BID #3 bottle 10/19/18 Cyclobenzaprine [Flexeril] 10 mg PO TID PRN #14 tablet 11/09/18 Nystatin [Nystop] 1 applic TOP BID #3 bottle 11/09/18 Loperamide [Imodium] 2 mg PO QID PRN #10 capsule 03/08/19 Ondansetron Odt [Zofran] 4 mg TL Q6H PRN #10 tablet 03/08/19 - Allergies Allergies/Adverse Reactions: Allergies Allergy/AdvReac Type Severity Reaction Status Date / Time naproxen Allergy Itching Verified 03/08/19 11:47 - Social History Does the pt smoke?: Yes Smoking Status: Current every day smoker Does the pt drink ETOH?: No Does the pt have substance abuse?: Yes Substance Use and Type: Marijuana - Immunizations Immunizations are current?: Yes - POLST Patient has POLST: No PD ED PE NORMAL - Vitals Vital signs reviewed: Yes - General General: Alert and oriented X 3, No acute distress - HEENT HEENT: Pharynx benign - Cardiac Cardiac: RRR, No murmur - Respiratory Respiratory: No respiratory distress, Clear bilaterally - Abdomen Abdomen: Soft, Non tender - Neuro Neuro: Alert and oriented X 3, Normal speech Results - Vitals Vitals: Vital Signs - 24 hr 03/08/19 03/08/19 11:47 12:07 Temperature 37 C 38.2 C H Heart Rate 73 78 Respiratory 20 20 Rate Blood Pressure 140/75 H 134/70 H O2 Saturation 98 95 Oxygen O2 Source Room air - Labs Labs: Laboratory Tests 03/08/19 12:25 Sodium 137 Potassium 4.2 Chloride 99 L Carbon Dioxide 29 Anion Gap 9.0 BUN 15 Creatinine 0.8 Estimated GFR (MDRD) 118 Glucose 99 Calcium 9.0 Total Bilirubin 1.1 H AST 49 H ALT 60 Alkaline Phosphatase 47 Total Protein 7.9 Albumin 4.6 Globulin 3.3 Albumin/Globulin Ratio 1.4 Lipase 26 PD MEDICAL DECISION MAKING - ED course ED course: 23-year-old gentleman with clinical gastroenteritis, nontender, on recheck after some IV fluids and nausea medicines he was feeling much better, passed an oral challenge, and remained nontender to palpation on reexamination just prior to discharge. Departure - Departure Disposition: 01 Home, Self Care Clinical Impression: Gastroenteritis Condition: Good Instructions: ED Gastroenteritis Viral Prescriptions: Loperamide [Imodium] 2 mg PO QID PRN #10 capsule PRN Reason: Diarrhea Ondansetron Odt [Zofran] 4 mg TL Q6H PRN #10 tablet PRN Reason: Nausea / Vomiting Comments: As discussed, the one good thing about an illness like this is it generally does not last more than 24 to 36 hours. Please return in 12 to 24 hours if not better, anytime for new or worsening symptoms.
[2019-03-08 12:51] LABS: ALBUMIN 4.6 g/dL (3.2-5.5); ALBUMIN/GLOBULIN RATIO 1.4 (1.0-2.2); BILIRUBIN,TOTAL 1.1 mg/dL (0.2-1.0); CREATININE 0.8 mg/dL (0.6-1.2); TOTAL PROTEIN 7.9 g/dL (6.7-8.2)
[2019-03-08] MEDS ORDERED: METOCLOPRAMIDE 10 MG/2 ML VIAL IVP STA (13:03)
[2019-03-08 13:49] VITALS: BP 109/67
== END 2019-03-08 13:49 | disposition home or self-care (01) ==
LOC: ED 11:44
DX: K52.9 Noninfective gastroenteritis and colitis, unspecified (principal); F17.200 Nicotine dependence, unspecified, uncomplicated
CPT/HCPCS: 36415; 80053; 83690; 96374; 96375; 99283; 99284; A9270; J2765

== ENCOUNTER 2019-05-26 21:49 | Emergency (ER) | payer MEDICAID ==
[2019-05-26 22:01] VITALS: BP 147/62
--- NOTE | 2019-05-26 22:08 | ED Physician Documentation ---
History of Present Illness - Stated complaint Stated Complaint: FLU SYMPTOMS - Chief complaint Chief Complaint: Resp - History obtained from History obtained from: Patient (the patient is a 24 y/o m who p/w a cc of a 2 week history of not feeling well. he has an appointment in a few days with his pcp. he denies h/a, neck pain, fevers or rashes. denies polydipsia or polyuria. reports over all just doesnt feel that well. denies any other complaints. denies cp/cough/syncope.) Review of Systems Constitutional: reports: Myalgias, Reviewed and negative Eyes: reports: Reviewed and negative Ears: reports: Reviewed and negative Nose: reports: Reviewed and negative Throat: reports: Reviewed and negative Cardiac: reports: Reviewed and negative Respiratory: reports: Reviewed and negative GI: reports: Reviewed and negative : reports: Reviewed and negative Skin: reports: Reviewed and negative Musculoskeletal: reports: Reviewed and negative Neurologic: reports: Reviewed and negative Psychiatric: reports: Reviewed and negative Endocrine: reports: Reviewed and negative Immunocompromised: reports: Reviewed and negative PD PAST MEDICAL HISTORY - Past Medical History Past Medical History: Yes Cardiovascular: None Respiratory: Asthma Neuro: None Endocrine/Autoimmune: None GI: GERD : None HEENT: None Psych: Depression, Anxiety Musculoskeletal: Chronic back pain, Other Derm: None - Past Surgical History Past Surgical History: No - Present Medications Home Medications: Ambulatory Orders Medication Instructions Recorded Confirmed No Known Home Medications 05/26/19 05/26/19 - Allergies Allergies/Adverse Reactions: Allergies Allergy/AdvReac Type Severity Reaction Status Date / Time naproxen Allergy Itching Verified 05/26/19 22:01 - Social History Does the pt smoke?: Yes Smoking Status: Current every day smoker Does the pt drink ETOH?: No Does the pt have substance abuse?: Yes - Immunizations Immunizations are current?: Yes - POLST Patient has POLST: No PD ED PE NORMAL - Vitals Vital signs reviewed: Yes - General General: Alert and oriented X 3, No acute distress, Well developed/nourished - HEENT HEENT: Atraumatic, PERRL, EOMI, Ears normal, Moist mucous membranes, Pharynx benign, Dentition benign - Neck Neck: Supple, no meningeal sign, No adenopathy, No JVD - Cardiac Cardiac: RRR, No murmur, Strong equal pulses - Respiratory Respiratory: No respiratory distress, Clear bilaterally, Other - Abdomen Abdomen: Normal bowel sounds, Soft, Non tender, Non distended, No organomegaly - Back Back: No CVA TTP, No spinal TTP - Derm Derm: Normal color, Warm and dry, No rash - Extremities Extremities: No deformity, No tenderness to palpate, Normal ROM s pain, No edema, No calf tenderness / cord - Neuro Neuro: Alert and oriented X 3, grocery shopper 2-12 intact, No motor deficit, No sensory deficit, Normal speech - Psych Psych: Normal mood, Normal affect Results - Vitals Vitals: Vital Signs - 24 hr 05/26/19 21:50 Temperature 37.2 C Heart Rate 62 Respiratory 17 Rate Blood Pressure 147/62 H O2 Saturation 97 Oxygen O2 Source Room air - Labs Labs: Laboratory Tests 05/26/19 22:16 POC Whole Bld Glucose 92 PD MEDICAL DECISION MAKING - ED course Complexity details: considered differential (patient with vague symptoms, normal vitals, unremarkable pe, will check a bg and encourage outpatient follow up.) Departure - Departure Disposition: 01 Home, Self Care Clinical Impression: Viral syndrome Condition: Stable Instructions: ED Viral Syndrome Follow-Up: your, doctor [Other] - Within 1 week
== END 2019-05-26 22:33 | disposition home or self-care (01) ==
LOC: ED 21:49
DX: B34.9 Viral infection, unspecified (principal); F17.210 Nicotine dependence, cigarettes, uncomplicated
CPT/HCPCS: 99281; 99282

== ENCOUNTER 2019-06-22 10:30 | Emergency (ER) | payer MEDICAID ==
[2019-06-22] MEDS ORDERED: HYDROcod/ACETAM 5/325 MG TABLET PO STA ×2 (10:48→12:07)
--- NOTE | 2019-06-22 10:50 | ED Physician Documentation ---
PD HPI LOWER EXT INJURY - Stated complaint Stated Complaint: LT ANKLE INJURY - History obtained from History obtained from: Patient (24-year-old gentleman who is morbidly obese and has borderline diabetes who presented with gradual onset but progressive left ankle pain starting yesterday morning. Its on the anterior and medial surface of the ankle. It hurts too bad to walk now. There is no specific injury. He does have a history of gout. Denies fevers or chills.) Review of Systems Ten Systems: 10 systems reviewed and negative Constitutional: denies: Fever, Chills Cardiac: denies: Chest pain / pressure, Palpitations Respiratory: denies: Dyspnea, Cough GI: denies: Abdominal Pain, Nausea, Vomiting PD PAST MEDICAL HISTORY - Past Medical History Cardiovascular: None Respiratory: Asthma Neuro: None Endocrine/Autoimmune: None GI: GERD : None HEENT: None Psych: Depression, Anxiety Musculoskeletal: Chronic back pain, Other Derm: None - Past Surgical History Past Surgical History: No - Present Medications Home Medications: Ambulatory Orders Medication Instructions Recorded Confirmed Colchicine 0.6 mg PO BID #2 capsule 06/22/19 Hydrocodone/Acetaminophen 1 - 2 each PO Q6H PRN #14 tablet 06/22/19 [Hydrocodon-Acetaminophen 5-325] Indomethacin [Indocin] 25 mg PO BIDWM #10 capsule 06/22/19 predniSONE [Deltasone] 20 mg PO [id number] #21 tab 06/22/19 - Allergies Allergies/Adverse Reactions: Allergies Allergy/AdvReac Type Severity Reaction Status Date / Time naproxen Allergy Itching Verified 05/26/19 22:01 - Social History Does the pt smoke?: Yes Smoking Status: Current every day smoker Does the pt drink ETOH?: No Does the pt have substance abuse?: Yes - Immunizations Immunizations are current?: Yes - POLST Patient has POLST: No PD ED PE NORMAL - Vitals Vital signs reviewed: Yes - General General: Alert and oriented X 3, No acute distress - HEENT HEENT: PERRL, EOMI - Neck Neck: Supple, no meningeal sign, No bony TTP - Abdomen Abdomen: Soft, Non tender - Extremities Extremities: Other (There is no warmth or redness or swelling to the left ankle. He is tender over the talar dome and anterior joint line as well as somewhat medial. Posteriorly and over the lateral malleolus he is not tender. He does have significant pain with any passive motion of the left ankle.) - Neuro Neuro: Alert and oriented X 3, Normal speech Results - Vitals Vitals: Vital Signs - 24 hr 06/22/19 06/22/19 10:31 12:21 Temperature 36.2 C L 36.9 C Heart Rate 90 68 Respiratory 20 18 Rate Blood Pressure 153/74 H 121/62 O2 Saturation 94 97 Oxygen O2 Source Room air - Labs Labs: Laboratory Tests 06/22/19 06/22/19 06/22/19 10:58 10:58 10:58 WBC 9.9 RBC 5.18 Hgb 15.2 Hct 44.9 MCV 86.7 MCH 29.3 MCHC 33.9 RDW 13.5 Plt Count 249 MPV 11.0 Neut # (Auto) 6.5 Lymph # (Auto) 2.5 Sac # (Auto) 0.6 Eos # (Auto) 0.1 Baso # (Auto) 0.1 Absolute Nucleated RBC 0.00 Nucleated RBC % 0.0 ESR 9 Sodium 134 L Potassium 4.0 Chloride 98 L Carbon Dioxide 28 Anion Gap 8.0 BUN 17 Creatinine 0.8 Estimated GFR (MDRD) 117 Glucose 97 Uric Acid 11.1 H Calcium 9.1 Total Bilirubin 0.7 AST 32 ALT 37 Alkaline Phosphatase 48 C-Reactive Protein 3.0 H Total Protein 7.8 Albumin 4.5 Globulin 3.3 Albumin/Globulin Ratio 1.4 Lipase 24 PD MEDICAL DECISION MAKING - ED course ED course: 24-year-old gentleman presents with atraumatic left ankle pain. It is pretty tender and it hurts to move, that said there is no other overt signs of infection such as fever or warmth or redness. His inflammatory markers are not consistent with a septic joint but the high uric acid in the setting of previous gout makes that the more likely diagnosis. Departure - Departure Disposition: 01 Home, Self Care Clinical Impression: Ankle pain, left Qualifiers: Chronicity: acute Qualified Code(s): M25.572 - Pain in left ankle and joints of left foot Condition: Good Record reviewed to determine appropriate education?: Yes Instructions: ED Arthritis Gout, ED Diet Gout Prescriptions: Colchicine 0.6 mg PO BID #2 capsule Hydrocodone/Acetaminophen [Hydrocodon-Acetaminophen 5-325] 1 - 2 each PO Q6H PRN #14 tablet PRN Reason: pain Indomethacin [Indocin] 25 mg PO BIDWM #10 capsule predniSONE [Deltasone] 20 mg PO [id number] #21 tab Comments: Looking at your labs this is almost definitely gout, your inflammatory markers are not really elevated and your uric acid level is quite high at 11.1. Read the attached information about following a specific diet for gout and talk with your doctor in 6 to 8 weeks about starting allopurinol to prevent it, it cannot be started now because it would make the current flare worse. Return for new or worsening symptoms or anytime if you run a fever. Discharge Date/Time: 06/22/19 12:28
[2019-06-22 11:07] LABS: BASOPHILS # (AUTO) 0.1 10^3/uL (0.0-0.1); BASOPHILS % (AUTO) 0.5 %; EOSINOPHILS # (AUTO) 0.1 10^3/uL (0.0-0.7); HGB - HEMOGLOBIN 15.2 g/dL (14.0-18.0); LYMPHOCYTES # (AUTO) 2.5 10^3/uL (1.5-3.5); LYMPHOCYTES % (AUTO) 25.7 %; MEAN CORPUSCULAR HEMOGLOBIN 29.3 pg (27.0-31.0); MEAN CORPUSCULAR HGB CONC 33.9 g/dL (32.0-36.0); MEAN CORPUSCULAR VOLUME 86.7 fL (80.0-94.0); MONOCYTES # (AUTO) 0.6 10^3/uL (0.0-1.0); MONOCYTES % (AUTO) 6.3 %; NEUTROPHILS # (AUTO) 6.5 10^3/uL (1.5-6.6); NEUTROPHILS % (AUTO) 65.3 %; PLT - PLATELET COUNT 249 10^3/uL (130-450); RED BLOOD COUNT 5.18 10^6/uL (4.70-6.10); RED CELL DISTRIBUTION WIDTH 13.5 % (12.0-15.0); WHITE BLOOD COUNT 9.9 x10^3/uL (4.8-10.8)
[2019-06-22 11:25] LABS: ALBUMIN 4.5 g/dL (3.2-5.5); ALBUMIN/GLOBULIN RATIO 1.4 (1.0-2.2); BILIRUBIN,TOTAL 0.7 mg/dL (0.2-1.0); CALCIUM 9.1 mg/dL (8.5-10.3); CREATININE 0.8 mg/dL (0.6-1.2); TOTAL PROTEIN 7.8 g/dL (6.7-8.2); URIC ACID 11.1 mg/dL (2.6-7.2)
--- NOTE | 2019-06-22 12:04 | XRAY Report ---
Reason: ankle pain Procedure Date: 06/22/2019 Accession Number: [id number] / [id number] Procedure: XR - Ankle 3 View LT CPT Code: Final Report FULL RESULT: EXAM: LEFT ANKLE RADIOGRAPHY EXAM DATE: 06/22/2019 11:18 AM. CLINICAL HISTORY: Ankle pain. COMPARISON: None. TECHNIQUE: 3 views. FINDINGS: Bones: No evidence of acute fracture. There are rounded lucencies within the distal aspect of the first metatarsal. No marginal erosions are seen at the ankle. Joints: No evidence of dislocation. Soft Tissues: There is diffuse soft tissue swelling. IMPRESSION: 1. No evidence of fracture or dislocation. 2. There is ankle soft tissue swelling. 3. Joint spacing is maintained. No tibiotalar joint marginal erosions. 4. There are 2 rounded areas of lucency within the distal first metatarsal which could represent marginal erosions in this patient with history of gout. RADIA
[2019-06-22] MEDS ORDERED: COLCHICINE 0.6 MG TABLET PO STA (12:07)
[2019-06-22 12:22] VITALS: BP 121/62
== END 2019-06-22 12:28 | disposition home or self-care (01) ==
LOC: ED 10:30
DX: M10.9 Gout, unspecified (principal); E11.9 Type 2 diabetes mellitus without complications; E66.01 Morbid (severe) obesity due to excess calories; Z68.43 Body mass index [BMI] 50.0-59.9, adult; F17.200 Nicotine dependence, unspecified, uncomplicated
CPT/HCPCS: 36415; 73610; 80053; 83690; 84550; 85025; 85651; 86140; 99284; A9270

== ENCOUNTER 2019-08-03 13:15 | Emergency (ER) | payer MEDICAID ==
--- NOTE | 2019-08-03 14:34 | ED Physician Documentation ---
PD HPI HEENT - Stated complaint Stated Complaint: TOOTH PX - Chief complaint Chief Complaint: Heent - History obtained from History obtained from: Patient (24-year-old gentleman has had a month and a half worth of pain from multiple teeth on the top left. He is seen a dentist and they tried to remove them but he did not really tolerate local anesthetic. He has been referred to an oral surgeon who does not take his insurance, and also to the [facility] but they cannot get him and her nobody called him back. He is here because ibuprofen is insufficient for pain. No fevers, no facial swelling.) Review of Systems Constitutional: denies: Fever, Chills Nose: reports: Reviewed and negative Throat: reports: Reviewed and negative Cardiac: reports: Reviewed and negative PD PAST MEDICAL HISTORY - Past Medical History Past Medical History: Yes Cardiovascular: None Respiratory: Asthma Neuro: None Endocrine/Autoimmune: None GI: GERD : None HEENT: None Psych: Depression, Anxiety Musculoskeletal: Chronic back pain, Other Derm: None - Past Surgical History Past Surgical History: No - Present Medications Home Medications: Ambulatory Orders Medication Instructions Recorded Confirmed Colchicine 0.6 mg PO BID #2 capsule 06/22/19 Hydrocodone/Acetaminophen 1 - 2 each PO Q6H PRN #14 tablet 06/22/19 [Hydrocodon-Acetaminophen 5-325] Indomethacin [Indocin] 25 mg PO BIDWM #10 capsule 06/22/19 predniSONE [Deltasone] 20 mg PO [id number] #21 tab 06/22/19 Hydrocodone/Acetaminophen 1 - 2 each PO Q6H PRN #14 tablet 08/03/19 [Hydrocodon-Acetaminophen 5-325] - Allergies Allergies/Adverse Reactions: Allergies Allergy/AdvReac Type Severity Reaction Status Date / Time naproxen Allergy Itching Verified 05/26/19 22:01 - Social History Does the pt smoke?: Yes Smoking Status: Current every day smoker Does the pt drink ETOH?: No Does the pt have substance abuse?: Yes - Immunizations Immunizations are current?: Yes - POLST Patient has POLST: No PD ED PE NORMAL - Vitals Vital signs reviewed: Yes - General General: Alert and oriented X 3 (He appears comfortable when I enter the room, texting on his phone and without evidence of overt pain) - HEENT HEENT: Other (A lot of cavities, but no facial swelling, tenderness, or evidence of infection. No trismus.) - Neck Neck: Supple, no meningeal sign, No bony TTP - Neuro Neuro: Alert and oriented X 3, Normal speech Results - Vitals Vitals: Vital Signs - 24 hr 08/03/19 13:25 Temperature 36.5 C Heart Rate 86 Respiratory 16 Rate Blood Pressure 151/89 H O2 Saturation 96 Oxygen O2 Source Room air PD MEDICAL DECISION MAKING - ED course ED course: 24-year-old gentleman with dental pain, does not seem acute, no evidence of infection. He is given a limited course of narcotics. He is relatively frequent visitor to the emergency department for nonemergent complaints and I discussed with him that narcotic analgesia for dental pain would be a one-time phenomenon. Departure - Departure Disposition: 01 Home, Self Care Clinical Impression: Pain due to dental caries Condition: Good Record reviewed to determine appropriate education?: Yes Instructions: ED Tooth Pain Prescriptions: Hydrocodone/Acetaminophen [Hydrocodon-Acetaminophen 5-325] 1 - 2 each PO Q6H PRN #14 tablet PRN Reason: pain Comments: It is very important that you follow-up with a dentist. When it comes to dental problems like yours, the emergency department can only offer a short-term solution to your long-term problem. A couple of low cost options for dental care include: [facility] in [place], calls [phone] for an appointment Or [facility] in [place], call [phone] for an appointment. The policy of this emergency department is to not give more than 3 prescriptions for narcotics or other controlled substances in any 1 year. You have already surpassed this benchmark and we cannot prescribe narcotics for you. I encourage you to follow up with your primary care physician or to establish care with a primary care physician for ongoing pain management. You are always welcome to seek emergency care here for this or new issues but there will likely be limitations in the prescription of narcotic pain medication.
[2019-08-03 14:38] VITALS: BP 148/80
== END 2019-08-03 14:38 | disposition home or self-care (01) ==
LOC: ED 13:15
DX: K02.9 Dental caries, unspecified (principal); F17.200 Nicotine dependence, unspecified, uncomplicated
CPT/HCPCS: 99282; 99283

== ENCOUNTER 2020-02-12 21:13 | Emergency (ER) | payer MEDICAID ==
[2020-02-12] MEDS ORDERED: HYDROcod/ACETAM 5/325 MG TABLET PO STA (21:31)
--- NOTE | 2020-02-12 21:32 | ED Physician Documentation ---
PD HPI LOWER EXT INJURY - Stated complaint Stated Complaint: INJURY TO L FOOT - Chief complaint Chief Complaint: Trauma Ext - History obtained from History obtained from: Patient - Additional information Additional information: 2 days of pain to the left first MTP joint. He thinks he may have kicked it in his sleep. Does note that he has had gout in the past. Review of Systems Constitutional: reports: Reviewed and negative Ears: reports: Reviewed and negative Cardiac: reports: Reviewed and negative Respiratory: reports: Reviewed and negative PD PAST MEDICAL HISTORY - Past Medical History Cardiovascular: None Respiratory: Asthma Neuro: None Endocrine/Autoimmune: None GI: GERD : None HEENT: None Psych: Depression, Anxiety Musculoskeletal: Chronic back pain, Other Derm: None - Past Surgical History Past Surgical History: No - Present Medications Home Medications: Ambulatory Orders Medication Instructions Recorded Confirmed HYDROcod/ACETAM 5/325 [[place] 5/325] 1 - 2 tab PO Q6H PRN #15 tablet 02/12/20 Ibuprofen [Motrin] 600 mg PO Q8HR PRN 02/12/20 02/12/20 - Allergies Allergies/Adverse Reactions: Allergies Allergy/AdvReac Type Severity Reaction Status Date / Time naproxen Allergy Itching Verified 02/12/20 21:29 - Social History Does the pt smoke?: Yes Smoking Status: Current every day smoker Does the pt drink ETOH?: No Does the pt have substance abuse?: Yes - Immunizations Immunizations are current?: Yes - POLST Patient has POLST: No PD ED PE NORMAL - Vitals Vital signs reviewed: Yes - General General: Alert and oriented X 3, No acute distress - HEENT HEENT: PERRL, EOMI - Extremities Extremities: Other (There is tenderness and mild redness to the left first MTP and a lot of pain with range of motion of the great toe most consistent with gouty arthritis.) - Neuro Neuro: Alert and oriented X 3, Normal speech Results - Vitals Vitals: Vital Signs - 24 hr 02/12/20 02/12/20 21:20 22:05 Temperature 36.7 C 36.5 C Heart Rate 80 70 Respiratory 16 16 Rate Blood Pressure 132/85 H 136/85 H O2 Saturation 97 99 Oxygen O2 Source Room air - Rads (name of study) L Foot XR 3v Radiology: EMP read contemporaneously (NAD) PD MEDICAL DECISION MAKING - ED course ED course: Feels like he injured it, but no recollected injury and location/exam/hx more c/w gout. XR neg. I was hesitant to use some standard gout therapies due to NSAID allergy, hx psych issues make steroids more risky. Departure - Departure Disposition: 01 Home, Self Care Clinical Impression: Podagra Condition: Good Record reviewed to determine appropriate education?: Yes Instructions: ED Arthritis Gout, ED Diet Gout Prescriptions: HYDROcod/ACETAM 5/325 [[place] 5/325] 1 - 2 tab PO Q6H PRN #15 tablet PRN Reason: Pain Comments: Call your doctor to arrange a follow-up appointment, make the next available appointment. In the interim, return anytime if worse or if new symptoms develop. Discharge Date/Time: 02/12/20 22:05
[2020-02-12] MEDS ORDERED: COLCHICINE 0.6 MG TABLET PO STA (22:08)
[2020-02-12 22:32] VITALS: BP 136/85
--- NOTE | 2020-02-13 08:51 | XRAY Report ---
PROCEDURE: Foot 3 View LT INDICATIONS: foot inj TECHNIQUE: 3 views of the foot were acquired. COMPARISON: None FINDINGS: Bones: No fractures or dislocations. No suspicious bony lesions. Soft tissues: No tibiotalar joint effusion. Achilles tendon appears normal. IMPRESSION: No fracture. No osseous lesion. If there is continued clinical concern for pathology, then repeat david in film radiographs (7-10 days) or advanced imaging (CT, MR, bone scan) should be considered for furt her evaluation. Reviewed by: Jennifer Mancilla MD, PhD on 02/13/2020 8:50 AM PST Approved by: Jennifer Mancilla MD, PhD on 02/13/2020 8:50 AM [facility] Station ID: [id number]
== END 2020-02-12 22:05 | disposition home or self-care (01) ==
LOC: ED 21:13
DX: M10.9 Gout, unspecified (principal); F17.200 Nicotine dependence, unspecified, uncomplicated
CPT/HCPCS: 73630; 99283; A9270

== ENCOUNTER 2020-04-01 05:08 | Emergency (ER) | payer MEDICAID ==
--- NOTE | 2020-04-01 05:50 | ED Physician Documentation ---
History of Present Illness - Stated complaint Stated Complaint: LT TOE PX - Chief complaint Chief Complaint: Ext Problem - History obtained from History obtained from: Patient - History of Present Illness Timing: How many days ago (2) - Additonal information Additional information: 24-year-old male with a history of gout has had a recent flare of his gout he velásquez d gout in his toe and several weeks later gout in his knee which she has never had before and then again now with gout in the left great toe. The patient has taken indomethacin previously he has been trying all of the other remedies possible and has not been able to sleep waking up in pain in the middle of the night. He has not been able to connect with his primary care doctor in [facility] and would like to transfer his care to [place]. Review of Systems Constitutional: denies: Fever Eyes: denies: Decreased vision Ears: denies: Ear pain Nose: denies: Congestion Throat: denies: Sore throat Cardiac: denies: Chest pain / pressure, Palpitations Respiratory: denies: Dyspnea, Cough GI: denies: Abdominal Pain, Nausea, Vomiting : denies: Dysuria, Frequency Skin: denies: Rash Musculoskeletal: reports: Extremity pain, Joint pain, Extremity swelling, Joint swelling. denies: Neck pain, Back pain Neurologic: denies: Generalized weakness, Focal weakness, Numbness PD PAST MEDICAL HISTORY - Past Medical History Cardiovascular: None Respiratory: Asthma Neuro: None Endocrine/Autoimmune: None GI: GERD : None HEENT: None Psych: Depression, Anxiety Musculoskeletal: Chronic back pain, Other Derm: None - Past Surgical History Past Surgical History: No - Present Medications Home Medications: Ambulatory Orders Medication Instructions Recorded Confirmed HYDROcod/ACETAM 5/325 [[place] 5/325] 1 - 2 tab PO Q6H PRN #15 tablet 02/12/20 Ibuprofen [Motrin] 600 mg PO Q8HR PRN 02/12/20 02/12/20 HYDROcod/ACETAM 5/325 [[place] 5/325] 1 - 2 ea PO Q6H PRN #14 tablet 04/01/20 Indomethacin [Indocin] 25 mg PO BIDWM PRN #20 capsule 04/01/20 - Allergies Allergies/Adverse Reactions: Allergies Allergy/AdvReac Type Severity Reaction Status Date / Time naproxen Allergy Itching Verified 04/01/20 05:41 - Social History Does the pt smoke?: Yes Smoking Status: Current every day smoker Does the pt drink ETOH?: No Does the pt have substance abuse?: Yes - Immunizations Immunizations are current?: Yes - POLST Patient has POLST: No PD ED PE NORMAL - Vitals Vital signs reviewed: Yes (hypertensive) - General General: Alert and oriented X 3, No acute distress, Well developed/nourished - HEENT HEENT: Atraumatic, PERRL, EOMI - Respiratory Respiratory: No respiratory distress - Derm Derm: Normal color, Warm and dry, No rash - Extremities Extremities: No deformity, Other (There is swelling erythema and point tenderness to the left great toe over the MTP joint. ) - Neuro Neuro: Alert and oriented X 3, a/c technician 2-12 intact, No motor deficit, No sensory deficit, Normal speech Eye Opening: Spontaneous Motor: Obeys Commands Verbal: Oriented GCS Score: 15 - Psych Psych: Normal mood, Normal affect Results - Vitals Vitals: Vital Signs - 24 hr 04/01/20 05:39 Temperature 37.2 C Heart Rate 64 Respiratory 18 Rate Blood Pressure 136/77 H O2 Saturation 100 Oxygen O2 Source Room air PD MEDICAL DECISION MAKING - ED course Complexity details: reviewed old records, reviewed results, re-evaluated patient, considered differential, d/w patient ED course: 24-year-old male with a history of gout appears to have gout again in his left g reat toe. He is administered dexamethasone 10 mg orally and Toradol 60 mg IM[address] We will place him on a course of indomethacin and a limited number of [place]. Departure - Departure Disposition: 01 Home, Self Care Clinical Impression: Gout attack Qualifiers: Gout site: toe Gout etiology: unspecified cause Laterality: left Qualified Code(s): M10.9 - Gout, unspecified Condition: Stable Instructions: ED Diet Gout, ED Arthritis Gout Follow-Up: Brian Coffman MD [Provider Admit Priv/Credential] - Prescriptions: Indomethacin [Indocin] 25 mg PO BIDWM PRN #20 capsule PRN Reason: Pain HYDROcod/ACETAM 5/325 [[place] 5/325] 1 - 2 ea PO Q6H PRN #14 tablet PRN Reason: Pain
[2020-04-01] MEDS ORDERED: CHERRY SYRUP 10 ML UDC PO ONE (05:52)
[2020-04-01] MEDS ORDERED: KETOROLAC 60 MG/2 ML VIAL IM STA (05:52)
[2020-04-01] MEDS ORDERED: DEXAMETHASONE 10 MG/ML VIAL PO STA (05:52)
[2020-04-01 06:22] VITALS: BP 124/79
== END 2020-04-01 06:22 | disposition home or self-care (01) ==
LOC: ED 05:08
DX: M10.9 Gout, unspecified (principal); F17.200 Nicotine dependence, unspecified, uncomplicated
CPT/HCPCS: 96372; 99283; A9270

== ENCOUNTER 2020-06-11 08:01 | Emergency (ER) | payer MEDICAID ==
[2020-06-11 08:06] VITALS: BP 149/76
[2020-06-11] MEDS ORDERED: CHERRY SYRUP 10 ML UDC PO ONE (08:24)
[2020-06-11] MEDS ORDERED: DEXAMETHASONE 10 MG/ML VIAL PO STA (08:24)
--- NOTE | 2020-06-11 08:27 | ED Physician Documentation ---
History of Present Illness - Stated complaint Stated Complaint: HEAD PX/COUGH/STUFFY NOSE - Chief complaint Chief Complaint: General - History obtained from History obtained from: Patient - Additonal information Additional information: 25-year-old man, previously healthy presents with upper respiratory symptoms for the past 4 to 5 days, gradual in onset and constant, worsening in severity. He states that he has had sinus congestion, postnasal drip, sore throat, cough productive of yellow sputum, bilateral frontal mild nonradiating aching constant headache associated with congestion. Denies fevers, hemoptysis, leg swelling, shortness of breath, chest tightness. denies sick contacts. he works from home and doesn't leave the house much. Review of Systems Ten Systems: 10 systems reviewed and negative Constitutional: denies: Fever, Chills Throat: reports: Sore throat Cardiac: denies: Chest pain / pressure Respiratory: reports: Cough. denies: Dyspnea, Hemoptysis GI: denies: Abdominal Pain, Nausea Skin: denies: Rash PD PAST MEDICAL HISTORY - Past Medical History Past Medical History: Yes Cardiovascular: None Respiratory: Asthma Neuro: None Endocrine/Autoimmune: None GI: GERD : None HEENT: None Psych: Depression, Anxiety Musculoskeletal: Chronic back pain, Other Derm: None - Past Surgical History Past Surgical History: No - Present Medications Home Medications: Ambulatory Orders Medication Instructions Recorded Confirmed No Known Home Medications 06/11/20 06/11/20 - Allergies Allergies/Adverse Reactions: Allergies Allergy/AdvReac Type Severity Reaction Status Date / Time naproxen Allergy Itching Verified 06/11/20 08:03 - Social History Does the pt smoke?: Yes Smoking Status: Current every day smoker Does the pt drink ETOH?: No Does the pt have substance abuse?: Yes Substance Use and Type: Marijuana - Immunizations Immunizations are current?: Yes - POLST Patient has POLST: No PD ED PE NORMAL - Vitals Vital signs reviewed: Yes - General General: Alert and oriented X 3, No acute distress, Well developed/nourished, Other (large body habitus) - HEENT HEENT: Atraumatic, PERRL, EOMI - Neck Neck: Supple, no meningeal sign, No adenopathy - Cardiac Cardiac: RRR - Respiratory Respiratory: No respiratory distress, Clear bilaterally - Extremities Extremities: No edema - Neuro Neuro: Alert and oriented X 3 - Psych Psych: Normal mood, Normal affect Results - Vitals Vitals: Vital Signs - 24 hr 06/11/20 08:03 Temperature 36.7 C Heart Rate 72 Respiratory 20 Rate Blood Pressure 149/76 H O2 Saturation 96 Oxygen O2 Source Room air PD MEDICAL DECISION MAKING - ED course Complexity details: d/w patient ED course: 25-year-old man presents with upper respiratory symptoms concerning for viral URI versus allergies. Discussed symptomatic care and return precautions were given. Patient will follow up with his primary doctor. Departure - Departure Disposition: 01 Home, Self Care Clinical Impression: URI (upper respiratory infection), Headache Condition: Good Instructions: ED Headache Sinus, ED URI Viral Comments: You were seen in the emergency department for nasal congestion cough, sore throat and sinus headache. Go to your local pharmacy and pickle maker the [id number] medications we discussed (Claritin, cool-mist humidifier, Afrin or phenylephrine spray, saline throat rinse).Return to the emergency department if you begin to experience fevers, cough up blood, have any new or worsening symptoms or other concerns. Follow-up with your primary doctor this week. Forms: Activity restrictions
--- OUTSIDE RECORDS SUMMARY | 2020-06-13 02:56 | EXTERNAL MEDICAL SUMMARY RPT | Continuity of Care Document ---
:1995 Demographics Phone Unavailable Preferred Language Unknown Marital Status Unknown Mandaeism Affiliation Unknown Race Unknown Ethnic Group Unknown Author Organization [facility] Address [address] [place] [address] Phone Social History date description facility [phone]
== END 2020-06-11 08:36 | disposition home or self-care (01) ==
LOC: ED 08:01
DX: J06.9 Acute upper respiratory infection, unspecified (principal); F17.200 Nicotine dependence, unspecified, uncomplicated
CPT/HCPCS: 99282; 99284; A9270

== ENCOUNTER 2020-06-13 22:30 | Emergency (ER) | payer MEDICAID ==
--- OUTSIDE RECORDS SUMMARY | 2020-06-13 22:34 | EXTERNAL MEDICAL SUMMARY RPT | Continuity of Care Document ---
:1995 Demographics Phone Unavailable Preferred Language Unknown Marital Status Unknown Bahai Affiliation Unknown Race Unknown Ethnic Group Unknown Author Organization [facility] Address [address] [place] [address] Phone Social History date description facility [phone]
--- OUTSIDE RECORDS SUMMARY | 2020-06-13 22:37 | EXTERNAL MEDICAL SUMMARY RPT | Continuity of Care Document ---
:1995 Demographics Phone Unavailable Preferred Language Unknown Marital Status Unknown Jain Affiliation Unknown Race Unknown Ethnic Group Unknown Author Organization [facility] Address [address] [place] [address] Phone Social History date description facility [phone]
[2020-06-14 01:17] VITALS: BP 128/74
--- NOTE | 2020-06-14 05:18 | ED Physician Documentation ---
History of Present Illness - Stated complaint Stated Complaint: COUGH/R EAR PX - Chief complaint Chief Complaint: Heent - History obtained from History obtained from: Patient - Additonal information Additional information: 25-year-old man with history of persistent upper respiratory infection presents with a productive cough, sore throat, sinus congestion and new onset right ear pain today. He states that he took steroids a couple days ago but it did not resolve his symptoms. Patient is a daily smoker. Denies fever, chest pain, shortness of breath. Review of Systems Ten Systems: 10 systems reviewed and negative Constitutional: denies: Fever, Chills, Myalgias Ears: reports: Ear pain Nose: reports: Rhinorrhea / runny nose, Congestion Throat: reports: Sore throat Cardiac: denies: Chest pain / pressure Respiratory: reports: Cough. denies: Dyspnea PD PAST MEDICAL HISTORY - Past Medical History Past Medical History: Yes Cardiovascular: None Respiratory: Asthma Neuro: None Endocrine/Autoimmune: None GI: GERD : None HEENT: None Psych: Depression, Anxiety Musculoskeletal: Chronic back pain, Other Derm: None - Past Surgical History Past Surgical History: No - Present Medications Home Medications: Ambulatory Orders Medication Instructions Recorded Confirmed Amoxicillin 875 mg PO BID 5 Days #10 tablet 06/14/20 - Allergies Allergies/Adverse Reactions: Allergies Allergy/AdvReac Type Severity Reaction Status Date / Time naproxen Allergy Itching Verified 06/13/20 22:46 - Social History Does the pt smoke?: Yes Smoking Status: Current every day smoker Does the pt drink ETOH?: No Does the pt have substance abuse?: Yes - Immunizations Immunizations are current?: Yes - POLST Patient has POLST: No PD ED PE NORMAL - Vitals Vital signs reviewed: Yes - General General: Alert and oriented X 3, No acute distress, Well developed/nourished - HEENT HEENT: Atraumatic, PERRL, Other (Right TM erythematous and swollen. Left TM clear. Sinuses tender to palpation. Erythematous bilateral anterior nares. Mild cobblestoning of posterior oropharynx.) - Neck Neck: Supple, no meningeal sign - Cardiac Cardiac: RRR - Respiratory Respiratory: No respiratory distress, Clear bilaterally Results - Vitals Vitals: Vital Signs - 24 hr 06/13/20 06/14/20 06/14/20 22:46 00:26 01:16 Temperature 36.5 C 36.5 C 36.5 C Heart Rate 72 75 72 Respiratory 16 17 17 Rate Blood Pressure 129/73 121/75 128/74 O2 Saturation 96 99 99 Oxygen O2 Source Room air PD MEDICAL DECISION MAKING - ED course ED course: 25-year-old man presents with URI symptoms versus allergic symptoms, likely exacerbated by daily cigarette smoking. He also does appear to have right-sided external ear infection. Shared decision making in regards to antibiotic treatment versus watchful waiting. Patient would prefer to go ahead and treat with antibiotics given his worsening symptoms. Advised probiotic diet. Strict return precautions given. Patient will follow up with his primary doctor. Departure - Departure Disposition: 01 Home, Self Care Clinical Impression: Sinusitis, Otitis media Condition: Good Instructions: ED Otitis Media Serous Adult Prescriptions: Amoxicillin 875 mg PO BID 5 Days #10 tablet Comments: You were seen in the emergency department for sore throat, sinus congestion, and right ear pain. You have a ear infection and should take antibiotics as prescribed. Please stop smoking. Return to the emergency department if you develop any new or worsening symptoms. Follow-up with your primary doctor Discharge Date/Time: 06/14/20 01:16
== END 2020-06-14 01:16 | disposition home or self-care (01) ==
LOC: ED 22:30
DX: J32.9 Chronic sinusitis, unspecified (principal); H65.91 Unspecified nonsuppurative otitis media, right ear; F17.200 Nicotine dependence, unspecified, uncomplicated
CPT/HCPCS: 99282; 99284